=== PATIENT | female | born 1995 | race Caucasian/White ===

== ENCOUNTER 2016-11-21 15:20 | Emergency (ER) | payer OTHER ==
[~2016-11-21] VITALS: Ht 160 cm; Wt 68.2 kg
[~2016-11-21 15:20] MED LIST: BCP PO; PRAM0.5T PO
[2016-11-21 15:23] VITALS: BP 132/91; PULSE 93; RESP 18; O2SAT 97
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
[2016-11-21] MEDS ORDERED: Ondansetron 2 mg/mL 2 mL Inj IVPUSH ONE (16:00)
[2016-11-21 16:01] LABS: BASOPHILS % (AUTO) 0.3 % (0-3); EOSINOPHILS % (AUTO) 0.6 % (0-5); MONOCYTES % (AUTO) 10.4 % (4-12); Mean Corpuscular Volume 85.6 fL (81-100); Platelet Count 387 bil/L (150-400)
[2016-11-21] MEDS: HYDROmorphone 0.5 mg/0.5 mL iSecure Syringe IVPUSH PRN ×4 (16:08→19:15)
[2016-11-21 16:26] LABS: Magnesium 1.9 mg/dL (1.6-2.6)
[2016-11-21 16:27] LABS: APPEARANCE,URINE CLEAR (CLEAR,HAZY); COLOR,URINE YELLOW (YELLOW); OCCULT BLOOD,URINE LARGE (NEGATIVE); PH,URINE 5.5 (5.0-8.0)
[2016-11-21 16:28] LABS: UROBILINOGEN,URINE NORMAL (NORMAL)
[2016-11-21 18:34] VITALS: BP 121/62; PULSE 64; RESP 16; O2SAT 98
--- NOTE | 2016-11-21 18:58 | DRSVH ---
PROCEDURE: US PELVIC SONOGRAM + TRANSVAGINAL SONOGRAM INDICATIONS: pelvic pain TECHNIQUE: Real-time scanning was performed of the pelvic organs, with image documentation. Additional endovagi nal scanning was necessary due to incomplete visualization of the adnexal and endometrial structures by transabdominal scanning. COMPARISON: None no other studies available.. FINDINGS: Transabdominal scanning: Limited scanning through the kidneys shows no hydronephrosis. No pathologi c free abdominal or pelvic fluid. Endovaginal scanning: Uterus: Uterus is normal in size at 8.2 x 4.4 x 5.9 cm. The endometrium measures 8.7 mm in combined thickness. Ovaries: The right ovary measures 31 x 19 x 31 mm, well within normal limits for size. It demonstrate s normal blood flow. Normal appearance of follicles. The left ovary measures 32 x 18 x 26 mm. This is normal in size and demonstrates normal blood flow. There is in the left ovary a hyperechoic structur e measuring 13 x 12 x 6 mm. This could be a complex or hemorrhagic cyst. Also possible would be solid ovarian lesion. IMPRESSION: 1. Cause of pain is not identified. Uterus and left and right ovaries not show abnormality to suggest pain cause. 2. Ultrasound in 6 weeks to follow left ovary, hyperechoic lesion measuring 12 x 13 x 6 mm is suggest ed. Dictated by: Kenton Santos M.D. on 11/21/2016 at 18:53 Approved by: Kenton Santos M.D. on 11/21/2016 at 18:56
[2016-11-21] MEDS ORDERED: OXYC1TAB24 PO (19:19)
[2016-11-21] MEDS ORDERED: ONDA8TAB10 PO (19:19)
[2016-11-21 19:39] VITALS: BP 113/59; PULSE 60; RESP 14; O2SAT 99
== END 2016-11-21 19:43 | disposition home or self-care (01) ==
LOC: SED 15:20
DX: R10.30 Lower abdominal pain, unspecified (principal); R11.2 Nausea with vomiting, unspecified; Z88.0 Allergy status to penicillin; Z88.8 Allergy status to other drugs, medicaments and biological substances
CPT/HCPCS: 36415; 76830; 76856; 80053; 81000; 81025; 83690; 83735; 85025; 87491; 87591; 96361; 96374; 96375; 99285; J1170; J2405